=== PATIENT | male | born 1945 | race Caucasian/White ===

== ENCOUNTER 2017-03-17 16:06 | Emergency (ER) | payer MEDICARE ==
[2017-03-17 16:16] VITALS: RESP 20
--- NOTE | 2017-03-17 16:50 | ED ---
General Adult HPI - General Chief complaint: Urogenital Stated complaint: STD Screening Source: patient Mode of arrival: ambulatory Limitations: no limitations - History of Present Illness Initial comments: 71-year-old male who had intercourse about 6 weeks ago was told today that his partner has gonorrhea unconfirmed case. Patient has no symptoms no pain no pressure no drainage. Patient just wants complete STD testing. Patient states he tested positive about 3 years ago and was treated and at that time did have symptoms. Patient does not have any abdominal pain or fevers no weakness. No dysuria. Patient denies any rash or lesions. patient also allegic symptoms itchy runny eyes.but no copious amounts of drainage no real sore throat. Patient also like to be tested for gonorrhea and his throat as well - Related Data Home Medications Medication Instructions Recorded Confirmed Aspirin 81 mg PO DAILY 09/05/14 03/17/17 Ezetimibe/Simvastatin [Vytorin 1 each PO DAILY 09/05/14 03/17/17 10-40 mg Tablet] Metoprolol Tartrate [Lopressor] 25 mg PO BID 09/05/14 03/17/17 Omeprazole 40 mg PO [id number] 09/05/14 03/17/17 Previous Rx's Medication Instructions Recorded Azithromycin [Zithromax Z-pack] 2 g PO DIRECTED #2 packet 03/17/17 Allergies Allergy/AdvReac Type Severity Reaction Status Date / Time No Known Allergies Allergy Verified 03/17/17 16:16 Review of Systems ROS Statement: Those systems with pertinent positive or pertinent negative responses have been documented in the HPI. ROS Other: All systems not noted in ROS Statement are negative. Constitutional: Denies: fever Gastrointestinal: Reports: as per HPI. Denies: abdominal pain, nausea, vomiting , diarrhea Skin: Denies: rash, lesions Past Medical History Past Medical History: Hyperlipidemia Additional Past Medical History / Comment(s): kidney stones History of Any Multi-Drug Resistant Organisms: None Reported Past Surgical History: Coronary Bypass/CABG, Heart Catheterization With Stent Additional Past Surgical History / Comment(s): 7 stents Past Psychological History: No Psychological Hx Reported Smoking Status: Never smoker Past Alcohol Use History: Occasional Past Drug Use History: None Reported General Exam Limitations: no limitations General appearance: alert, in no apparent distress Head exam: Present: atraumatic, normocephalic, normal inspection Eye exam: Present: normal appearance, PERRL, EOMI. Absent: scleral icterus, conjunctival injection, periorbital swelling ENT exam: Present: normal exam, normal oropharynx, mucous membranes moist Neck exam: Present: normal inspection. Absent: tenderness, meningismus, lymphadenopathy Respiratory exam: Present: normal lung sounds bilaterally. Absent: respiratory distress, wheezes, rales, rhonchi, stridor Cardiovascular Exam: Present: regular rate, normal rhythm, normal heart sounds. Absent: systolic murmur, diastolic murmur, rubs, gallop, clicks GI/Abdominal exam: Present: soft, normal bowel sounds. Absent: distended, tenderness, guarding, rebound, rigid Course Vital Signs 03/17/17 16:14 Temperature 99 F Pulse Rate 87 Respiratory 20 Rate Blood Pressure 170/77 O2 Sat by Pulse 98 Oximetry Medical Decision Making - Medical Decision Making Patient did not want any treatment today as he really truly think sees negative for any of these possible illnesses. Patient was sent home with azithromycin prescription today if symptoms are positive for coronary or chlamydia patient to fill the prescription. Disposition Clinical Impression: Possible exposure to STD Disposition: HOME SELF-CARE Condition: Good Instructions: Gonorrhea (ED) Prescriptions: Azithromycin [Zithromax Z-pack] 2 g PO DIRECTED #2 packet Referrals: None,Stated [Primary Care Provider] - 1-2 days Velma Gurrola MD [REFERRING] - 1-2 days Time of Disposition: 16:50
[2017-03-17] MEDS ORDERED: cefTRIAXone 250 MG VIAL IM STA (17:00)
[2017-03-17 17:41] VITALS: BP 148/82; PULSE 86; TEMP 98
[2017-03-17 17:45] LABS: Hepatitis B Surface Ag Index 0.05
[2017-03-17 17:51] LABS: Hepatitis B Core IgM Index 0.02
[2017-03-17 18:03] LABS: Hepatitis C Virus IgG Ab Negative (Negative); Hepatitis C Virus IgG Index 0.06
== END 2017-03-17 17:41 | disposition home or self-care (01) ==
LOC: EC 16:06
DX: Z20.2 Contact with and (suspected) exposure to infections with a predominantly sexual mode of transmission (principal); E78.5 Hyperlipidemia, unspecified; Z95.1 Presence of aortocoronary bypass graft; Z79.82 Long term (current) use of aspirin; Z79.899 Other long term (current) drug therapy
CPT/HCPCS: 99283; 96372; 36415; 80074; 86696; 86694; 86695; 87491; 87591; 86780; 87070; 87390; J0696